=== PATIENT | female | born 1955 | race Caucasian/White ===

== ENCOUNTER 2017-02-26 12:03 | Day surgery (SDC) | payer OTHER ==
[2017-02-26] MEDS ORDERED: DEXAMETHASONE SOD PHOS PF 10 MG/ML SOL IJ ONE (13:03)
[2017-02-26 13:31] VITALS: BP 134/72; PULSE 66; RESP 16; TEMP 98.5; O2SAT 96
== END 2017-02-26 13:43 | disposition home or self-care (01) ==
LOC: SURG 12:03
PROVIDERS: ATTEND Nurse Anesthetist, Certified Registered
DX: M99.83 Other biomechanical lesions of lumbar region (principal); M25.551 Pain in right hip
CPT/HCPCS: 64483; 77003; J1100

== ENCOUNTER 2017-09-09 13:01 | Outpatient (CLI) | payer OTHER ==
[2017-02-26 13:31] VITALS: O2SAT 96
== END 2017-09-09 13:02 | disposition home or self-care (01) ==
LOC: CONVCARE 13:01
PROVIDERS: ATTEND Orthopaedic Surgery
DX: M17.12 Unilateral primary osteoarthritis, left knee (principal)
CPT/HCPCS: 73562

== ENCOUNTER 2018-07-21 09:12 | Day surgery (SDC) | payer OTHER ==
[2018-07-21] MEDS ORDERED: PROPOFOL 500 MG/50 ML EMU IV ONE (10:30)
[2018-07-21] MEDS ORDERED: PROPOFOL 10 MG/ML 200 MG/20 ML EMU IV ONE ×2 (10:37→11:02)
[2018-07-21 11:17] VITALS: TEMP 98.1
[2018-07-21 11:31] VITALS: BP 128/77; PULSE 63; RESP 15; O2SAT 99
== END 2018-07-21 11:51 | disposition home or self-care (01) ==
LOC: SURG 09:12
PROVIDERS: ATTEND Surgery
DX: Z09 Encounter for follow-up examination after completed treatment for conditions other than malignant neoplasm (principal); Z86.010 Personal history of colon polyps; Z80.0 Family history of malignant neoplasm of digestive organs; K63.89 Other specified diseases of intestine; Z98.0 Intestinal bypass and anastomosis status; D12.8 Benign neoplasm of rectum; D12.6 Benign neoplasm of colon, unspecified
CPT/HCPCS: 99001; J2704